=== PATIENT | female | born 1980 | race Two or more races ===

== ENCOUNTER 2020-11-26 19:56 | Emergency (ER) | payer BC, OTHER ==
[~2020-11-26] VITALS: Ht 172.7 cm; Wt 74.8 kg
[2020-11-26 20:52] VITALS: BP 124/93
== END 2020-11-26 22:06 | disposition left against medical advice (07) ==
LOC: ER 19:59
DX: S61.012A Laceration without foreign body of left thumb without damage to nail, initial encounter (principal); Z53.21 Procedure and treatment not carried out due to patient leaving prior to being seen by health care provider; W26.0XXA Contact with knife, initial encounter; Y93.89 Activity, other specified; Y92.89 Other specified places as the place of occurrence of the external cause; Y99.8 Other external cause status